=== PATIENT | female | born 1955 | race Caucasian/White ===

== ENCOUNTER 2023-08-15 10:24 | Day surgery (SDC) | payer OTHER ==
[2023-08-10 09:14] VITALS: BMI 25.3
[2023-08-15] MEDS ORDERED: PHENYLEPHRINE 2.5% OPTHALMIC DROP 2ML BOTTLE ONE (11:01)
[2023-08-15] MEDS ORDERED: CYCLOPENTOLATE 2% OPHTH SOLN 2 ML BOTTLE ONE (11:01)
[2023-08-15] MEDS ORDERED: TROPICAMIDE 1% OPHTH SOLN 15 ML BOTTLE ONE (11:01)
[2023-08-15] MEDS ORDERED: CIPROFLOXACIN 0.3% EYE DROPS 5 ML BOTTLE ONE (11:01)
[2023-08-15 11:06] VITALS: TEMP 97.3
[2023-08-15] MEDS ORDERED: MIDAZOLAM HCL 2 MG/2 ML SINGLE DOSE VIAL ONE (11:06)
[2023-08-15] MEDS ORDERED: CARBACHOL 0.01% INTRA-OCULAR 1.5 ML VIAL ONE (11:26)
[2023-08-15] MEDS ORDERED: TETRACAINE 0.5% OPHTH SOLN 2 ML BOTTLE ONE (11:26)
[2023-08-15] MEDS ORDERED: LIDOCAINE 1% P/F 10 MG/ML VIAL ONE (11:26)
[2023-08-15] MEDS ORDERED: NEO/POLYMYX B SULF/DEXAMETH OPHTHALMIC 5ML BOTTLE ONE (11:26)
[2023-08-15] MEDS ORDERED: BSS (NA/CA/MG/K) BALANCED SALT SOLUTION OPHTH SOLN 15 ML BOTTLE ONE (11:26)
[2023-08-15] MEDS ORDERED: ONDANSETRON 4 MG/2 ML VIAL ONE (12:37)
[2023-08-15 14:31] VITALS: RESP 17
[2023-08-15 14:42] VITALS: BP 122/78; PULSE 60
== END 2023-08-15 14:00 | disposition home or self-care (01) ==
LOC: FASU 10:24
PROVIDERS: ATTEND Ophthalmology
PROC: 08RK3JZ Replacement of Left Lens with Synthetic Substitute, Percutaneous Approach (ICD-10-PCS; principal; 2023-08-15 12:42)
DX: H26.8 Other specified cataract (principal)
CPT/HCPCS: 66984; V2632

== ENCOUNTER 2023-09-19 07:45 | Day surgery (SDC) | payer OTHER ==
[2023-09-11 12:26] VITALS: BMI 25.3
[2023-09-19] MEDS ORDERED: CARBACHOL 0.01% INTRA-OCULAR 1.5 ML VIAL ONE (08:08)
[2023-09-19] MEDS ORDERED: NEO/POLYMYX B SULF/DEXAMETH OPHTHALMIC 5ML BOTTLE ONE (08:08)
[2023-09-19] MEDS ORDERED: EPINEPHrine/PF 1 MG/1 ML (1:1,000) AMPULE ONE (08:08)
[2023-09-19] MEDS ORDERED: LIDOCAINE 1% P/F 10 MG/ML VIAL ONE (08:08)
[2023-09-19] MEDS ORDERED: BSS (NA/CA/MG/K) BALANCED SALT SOLUTION OPHTH SOLN 15 ML BOTTLE ONE (08:08)
[2023-09-19] MEDS ORDERED: TETRACAINE 0.5% OPHTH SOLN 2 ML BOTTLE ONE (08:08)
[2023-09-19] MEDS: PHENYLEPHRINE 2.5% OPTHALMIC DROP 2ML BOTTLE ONE (08:25)
[2023-09-19] MEDS: TROPICAMIDE 1% OPHTH SOLN 15 ML BOTTLE ONE (08:25)
[2023-09-19] MEDS: CIPROFLOXACIN 0.3% EYE DROPS 5 ML BOTTLE ONE (08:25)
[2023-09-19] MEDS: CYCLOPENTOLATE 2% OPHTH SOLN 2 ML BOTTLE ONE (08:25)
[2023-09-19] MEDS ORDERED: MIDAZOLAM HCL 2 MG/2 ML SINGLE DOSE VIAL ONE (09:36)
[2023-09-19] MEDS ORDERED: ONDANSETRON 4 MG/2 ML VIAL ONE (09:56)
[2023-09-19] MEDS ORDERED: KETOROLAC TROMETHAMINE 30 MG/1 ML VIAL ONE (10:06)
[2023-09-19 16:33] VITALS: RESP 17
[2023-09-19 16:42] VITALS: BP 122/74; PULSE 72; TEMP 97.3
== END 2023-09-19 10:55 | disposition home or self-care (01) ==
LOC: FASU 07:45
PROVIDERS: ATTEND Ophthalmology
PROC: 08RJ3JZ Replacement of Right Lens with Synthetic Substitute, Percutaneous Approach (ICD-10-PCS; principal; 2023-09-19 10:08)
DX: H26.8 Other specified cataract (principal)
CPT/HCPCS: 66984; V2632